=== PATIENT | female | born 1985 | race Caucasian/White ===

== ENCOUNTER → 2023-05-09 | Outpatient (CLI) | payer MEDICAID | END | disposition home or self-care (01) | LOC: LAB 06:44 | PROVIDERS: ATTEND Nurse Practitioner Family | DX: N39.0 Urinary tract infection, site not specified (principal) | CPT/HCPCS: 87086 ==

== ENCOUNTER 2024-11-16 10:22 | Outpatient (CLI) | payer MEDICAID ==
[2024-11-16 10:41] LABS: Hematocrit 40.1 % (36.0-46.0); Hemoglobin 13.7 g/dL (12.2-16.2); Mean Corpuscular Hemoglobin 32.0 pg (28.0-32.0); Mean Corpuscular Volume 93.7 fL (80.0-100.0); Nucleated Red Blood Cells % 0.1 %
[2024-11-16 11:10] LABS: Triglycerides 112 mg/dL (< 150)
[2024-11-16 11:11] LABS: Alanine Aminotransferase 16 U/L (7-40); Albumin 4.1 g/dL (3.2-4.8); Anion Gap 9 (5-15); BUN/Creatinine Ratio 17.6 (10.0-20.0); Blood Urea Nitrogen 15 mg/dL (9-23); Calcium 8.9 mg/dL (8.7-10.4); Carbon Dioxide 28 mmol/L (20-31); Chloride 104 mmol/L (98-107); Cholesterol 129 mg/dL (< 200); HDL Cholesterol 55 mg/dL (40-59); Potassium 4.0 mmol/L (3.5-5.1); Sodium 141 mmol/L (136-145); Total Protein 6.1 g/dL (5.7-8.2)
[2024-11-16 11:17] LABS: Alkaline Phosphatase 24 U/L (46-116); Bilirubin, Total 0.3 mg/dL (0.2-1.0); Glucose 133 mg/dL (74-106)
== END 2024-11-16 17:00 | disposition home or self-care (01) ==
LOC: LAB 10:22
PROVIDERS: ATTEND Nurse Practitioner Family
DX: F90.9 Attention-deficit hyperactivity disorder, unspecified type (principal); L40.50 Arthropathic psoriasis, unspecified; M42.00 Juvenile osteochondrosis of spine, site unspecified; M06.1 Adult-onset Still's disease; Z86.32 Personal history of gestational diabetes
CPT/HCPCS: 36415; 80053; 80061; 82306; 83036; 84443; 85025

== ENCOUNTER 2024-12-25 01:31 | Emergency (ER) | payer MEDICAID ==
[~2024-12-25] VITALS: Ht 160 cm; Wt 90.6 kg
[2024-12-25 02:06] VITALS: BP 124/75; TEMP 98
[2024-12-25 02:07] VITALS: PULSE 87; RESP 18; O2SAT 99
[2024-12-25] MEDS ORDERED: DOXY100C4 PO (02:08)
[2024-12-25] MEDS ORDERED: IBU600T PO (02:08)
--- NOTE | 2024-12-25 02:08 | ED.PDOC ---
History of Present Illness(SKN HPI Comments PATIENT C/O RIGHT MEDIAL ANKLE PAIN, SWELLING, REDNESS STARTING AROUND 1400 YESTERDAY. DENIES ANY ACCIDENT OR INJURY. HAS HAD CELLULITIS IN THE PAST. DENIES NUMBNESS, WEAKNESS, CHEST PAIN, SHORTNESS OF BREATH, FEVER, CHILLS, NAUSEA, VOMITING, RECENT TRAVEL. Chief Complaint: Lower Extremity Time Seen by MD: 01:45 History of Present Illness: Nurses Notes, Medications, Allergies Allergies: Coded Allergies: NO KNOWN ALLERGIES (Unverified , 04/21/13) Home Meds Active Scripts Ibuprofen Micronized (MOTRIN TABLET) 600 Mg Tb, 600 MG PO Q6HP PRN for 6 Days, #24 TAB *Black box warning-NSAIDS can increase risk of ME & hypertension, GI irritation, ulceration, bleed, perferation. Do not use post cardiac surgery. Use short duration/lowest effective dose. Prov:BONIFACIO MEJIA [facility] 12/25/24 Doxycycline Hyclate (Doxycycline Hyclate) 100 Mg Cap, 100 MG PO BID for 7 Days, #14 CAP Prov:BONIFACIO MEJIA [facility] 12/25/24 Information Source: Patient Mode of Arrival: Ambulatory Past Medical History PAST MEDICAL HISTORY: Denies Surgical History: Appendectomy, Cholecystectomy SECURITY ASSESSOR History: No Pertinent SECURITY ASSESSOR History Family History Family History: No family hx of DM, No family hx of Heart mingo Social History Smoker: Cigarettes, Less Than 1 Pack/Day Alcohol: Occasionally Drugs: Denies Drug Use Lives In: Home All Other Systems: Reviewed and Negative (SEE HPI) Physical Exam General Appearance: No Apparent Distress, Normal HEENT: Pharynx Normal Neck: Full Range of Motion, Non-Tender Respiratory: Lungs Clear, No Respiratory Distress, Normal Breath Sounds Cardiovascular: No Edema, No JVD, No Murmur, No Gallop, Normal Peripheral Pulses, Regular Rate/Rhythm Breast Exam: Deferred Gastrointestinal: No Organomegaly, Non Tender, No Pulsatile Mass, Normal Bowel Sounds, Soft Genitalia: Deferred Pelvic: Deferred Rectal: Deferred Extremities: Inflammation (CELLULITIC PATCH RIGHT MEDIAL ANKLE NOTED CENTER PUNCTURE WOUND NO NOTED DRAINAGE OR WARMTH TO TOUCH NO NOTED STREAKING STRENGTH SENSORY MOTION INTACT POSITIVE PEDAL PULSE), Normal capillary refill, Normal range of motion, Swelling (TRACE EDEMA RIGHT FOOT/ANKLE) Musculoskeletal : Apperance: Normal Neurologic: Alert, No Motor Deficits, Normal Affect, Normal Mood, No Sensory Deficits Cerebellar Function: Normal Reflexes: NOT DONE Skin: Dry, Normal Color, Warm Lymphatic: No Adenopathy Was a procedure done? Was a procedure done?: No Differential Diagnosis (INTG) Differential Diagnosis: Cellulitis, Puncture Wound Differential Diagnosis: Abscess X-Ray, Labs, Meds, VS Vital Signs Date Time Temp Pulse Resp B/P (MAP) Pulse Ox O2 Delivery O2 Flow Rate FiO2 12/25/24 02:07 87 18 99 Room Air* 0 21 12/25/24 02:06 98.0 87 18 124/75 (91) 99 98.0 12/25/24 01:33 97.3 82 18 112/79 97 97.3 Current Medications Medications (Trade) Dose Ordered Sig/Jaylin Route Start Time Stop Time Status Last Admin Ceftriaxone Sodium (Rocephin) 1,000 mg ONCE ONCE IM 12/25/24 02:15 12/25/24 02:16 DC 12/25/24 02:17 Acetaminophen/ Hydrocodone Bitart ([place] 10/325MG Tab) 1 tab ONCE ONCE PO 12/25/24 02:15 12/25/24 02:16 DC 12/25/24 02:17 X-Ray, Labs, Meds, VS Comment ROCEPHIN 1 G IM AND NORCO 10 MG P.O. REPORTS IMPROVEMENT REQUESTING DISCHARGE AT THIS TIME. SCRIPT TRIAL OF DOXY AND IBUPROFEN ADVISED TO TAKE MEDICATION PRESCRIBED SIDE EFFECTS DISCUSSED. ADVISED ON ELEVATE AND COMPRESS FOR THE SWELLING. FOLLOW UP WITH HER PCP IN TWO THREE DAYS OR BACK OF THE URGENT CARE IN THE ER FOR WOUND RE-EVALUATION. ER RETURN PRECAUTIONS GIVEN FOR CHEST PAIN, DIFFICULTY BREATHING, SHORTNESS OF BREATH, FEVER, CHILLS NONSTOP NAUSEA OR VOMITING OR ANY CONCERNING SYMPTOMS. UNDERSTANDING AGREES WITH DISCHARGE PLAN OF CARE. Time of 1ST Reevaluation: 02:06 Reevaluation 1ST: Unchanged Time of 2ND Reevaluation: 02:14 Reevaluation 2ND: Improved Patient Education/Counseling: Diagnosis, Treatment, Prognosis, Need For Follow Up Family Education/Counseling: Diagnosis, Treatment SEPSIS Sepsis Screen Date sepsis recognized/suspect: Dec 25, 2024 Time Sepsis recognized/suspect: 013 Recent Procedure: No On Antibiotic Therapy: No Respiratory Rate >20: No Heart Rate >90: No Temp<36 C (96.8 F) or >38.3 C: No SBP <90 or MAP <65 mmHG: No New Acute Mental Status Change: No Is the patient on CPAP, BIPAP,: No Vital Signs Date Time Temp Pulse Resp B/P (MAP) Pulse Ox O2 Delivery O2 Flow Rate FiO2 12/25/24 02:07 87 18 99 Room Air* 0 21 12/25/24 02:06 98.0 87 18 124/75 (91) 99 98.0 12/25/24 01:33 97.3 82 18 112/79 97 97.3 Medications Medications Dose Ordered Sig/Jaylin Route Start Time Stop Time Status Last Admin Dose Admin Acetaminophen/ Hydrocodone Bitart 1 tab ONCE ONCE PO 12/25/24 02:15 12/25/24 02:16 DC 12/25/24 02:17 Ceftriaxone Sodium 1,000 mg ONCE ONCE IM 12/25/24 02:15 12/25/24 02:16 DC 12/25/24 02:17 Departure 1 Departure Time of Disposition: 02:14 Impression: Primary Impression: Bug bite with infection Qualified Codes: W57.XXXA - Bitten or stung by nonvenomous insect and other nonvenomous arthropods, initial encounter Disposition: 01 HOME / SELF CARE / HOMELESS Condition: Stable e-Prescriptions Ibuprofen Micronized (MOTRIN TABLET) 600 Mg Tb 600 MG PO Q6HP PRN for 6 Days, #24 TAB *Black box warning-NSAIDS can increase risk of ME & hypertension, GI irritation, ulceration, bleed, perferation. Do not use post cardiac surgery. Use short duration/lowest effective dose. Prov: BONIFACIO MEJIA 12/25/24 Doxycycline Hyclate (Doxycycline Hyclate) 100 Mg Cap 100 MG PO BID for 7 Days, #14 CAP Prov: BONIFACIO MEJIA 12/25/24 Discharged With: Significant Other Critical Care Note Critical Care Time?: No Stability Stability form required: No BONIFACIO MEJIA Dec 25, 2024 02:08
[2024-12-25] MEDS: HYDROcodone-ACET 10/325MG TAB PO ONE (02:17)
[2024-12-25] MEDS: cefTRIAXone SOD 1,000 MG VL IM ONE (02:17)
== END 2024-12-25 02:24 | disposition home or self-care (01) ==
LOC: ER 01:31
DX: S91.031A Puncture wound without foreign body, right ankle, initial encounter (principal); L08.9 Local infection of the skin and subcutaneous tissue, unspecified; F17.210 Nicotine dependence, cigarettes, uncomplicated; F10.90 Alcohol use, unspecified, uncomplicated; Z90.49 Acquired absence of other specified parts of digestive tract; Z79.899 Other long term (current) drug therapy; W57.XXXA Bitten or stung by nonvenomous insect and other nonvenomous arthropods, initial encounter; Y93.89 Activity, other specified; Y92.89 Other specified places as the place of occurrence of the external cause; Y99.8 Other external cause status; Y90.9 Presence of alcohol in blood, level not specified
CPT/HCPCS: 96372; 99283; J0696